=== PATIENT | male | born 1995 | race Caucasian/White ===

== ENCOUNTER 2016-12-17 22:16 | Emergency (ER) | payer BC ==
[~2016-12-17] VITALS: Ht 193 cm; Wt 77.7 kg
[2016-12-17 22:23] VITALS: TEMP 37.2; Ht 193 cm; Wt 77.7 kg
--- NOTE | 2016-12-17 22:40 | EMERGENCY ROOM VISIT NOTE ---
ED Visit Note First contact with patient: 22:32 CHIEF COMPLAINT: Finger injury today HISTORY OF PRESENT ILLNESS: This 21-year-old male patient presents to the emergency department ambulatory after they injured the right fifth finger just prior to arrival. The patient states that he stoved the finger on a basketball. He states this has occurred twice before. The patient has been unable to move it at the proximal joint since and there is moderate and constant pain. The patient rates the pain as dull and 2/10. The patient has taken no medication for relief of the pain. REVIEW OF SYSTEMS: A 6 system review of systems was completed with positives and pertinent negatives listed in the HPI. ALLERGIES: Peanut MEDICATIONS: Cetirizine, minocycline PMH: No significant past medical history SOCIAL HISTORY: The patient is a [employer] student and lives with roommates. PHYSICAL EXAM: Vital Signs: Reviewed Nurse's notes, vital signs stable. GENERAL : This is a 21-year-old male, in no acute distress, but appears to be in pain, well-developed, well-nourished. MUSCULOSKELETAL: There is an obvious deformity at the PIP joint of the right fifth finger with dorsal dislocation of the middle phalanx. The patient is unable to move the PIP joint. The distal dislocated portion of the finger is pale but is sensate. SKIN: There is no laceration or abrasion. Capillary refill is less than two seconds. RADIOGRAPHIC FINDINGS: RIGHT FIFTH FINGER 3 VIEWS HISTORY: finger dislocation post-reduction- right fifth Right COMPARISON: None. FINDINGS: There is no fracture or dislocation. Soft tissue swelling at the PIP joint. Moderate irregularity at the volar base of the middle phalanx without definite fracture. This could be due to an old injury. No radiopaque foreign bodies. IMPRESSION: No fractures. Soft tissue swelling at the PIP joint. EMERGENCY DEPARTMENT COURSE: I examined the patient. Verbal consent was obtained to perform the procedure. The joint was easily reduced by applying a steady and rapid axial distraction of the dislocated portion at the PIP joint while the proximal portion was stabilized with the other hand. Following this motion of the joint was normal and full and the patient could move it normally. Neurovascular status was rechecked and intact. Post-reduction X-ray was reviewed by myself and radiology and shows no acute findings. The patient was discharged home in stable condition. DIAGNOSIS: Dislocated PIP joint of the right fifth finger Current/Historical Medications Scheduled PRN Cetirizine (Zyrtec), 10 MG PO DAILY PRN for ALLERGIC REACTION Miscellaneous Medications Minocycline (Minocin), Unknown Dose PO Allergies Coded Allergies: Peanut (Unverified Allergy, Unknown, HIVES, 12/17/16) Vital Signs Date Time Temp Pulse Resp B/P Pulse Ox O2 Delivery O2 Flow Rate FiO2 12/17/16 22:23 37.2 89 16 132/82 97 Room Air Departure Information Impression Primary Impression: Finger dislocation Dispostion Home / Self-Care Condition GOOD Referrals No Doctor, Assigned (PCP) Patient Instructions My [facility] Additional Instructions Wear the finger splint for the next 2-3 days then as needed. For pain control, you can use the following [id number] medicines (if >12 yo): - Regular strength (325mg/tab) Tylenol (acetaminophen) 2 tabs every 4-6 hours as needed. Do not exceed 12 tablets in a 24 hour period. Avoid taking more than 4 grams (4000 mg) of Tylenol per day. This includes any other sources of acetaminophen you may take on a regular basis. - Regular strength (200 mg/tab) Advil (ibuprofen) 1-2 tabs every 4-6 hours as needed. Do not exceed a dose of 3200 mg per day. Apply ice to the finger.
[2016-12-17] MEDS ORDERED: MINO75CA2 PO (22:49)
[2016-12-17] MEDS ORDERED: CETI10TA84 PO (22:49)
--- NOTE | 2016-12-17 22:58 | DIAGNOSTIC IMAGING REPORT ---
RIGHT FIFTH FINGER 3 VIEWS HISTORY: finger dislocation post-reduction- right fifth Right COMPARISON: None. FINDINGS: There is no fracture or dislocation. Soft tissue swelling at the PIP joint. Moderate irregularity at the volar base of the middle phalanx without definite fracture. This could be due to an old injury. No radiopaque foreign bodies. IMPRESSION: No fractures. Soft tissue swelling at the PIP joint. Electronically signed by: Rome Miguel M.D. 12/17/2016 10:56 PM Dictated Date/Time: 12/17/2016 10:54 PM
[2016-12-17 23:10] VITALS: BP 113/80; PULSE 86; O2SAT 97
== END 2016-12-17 23:10 | disposition home or self-care (01) ==
LOC: C.EDB 22:18
DX: S63.280A Dislocation of proximal interphalangeal joint of right index finger, initial encounter (principal); X58.XXXA Exposure to other specified factors, initial encounter; Y93.67 Activity, basketball; Y92.310 Basketball court as the place of occurrence of the external cause; Y99.8 Other external cause status